=== PATIENT | female | born 1980 | race Caucasian/White ===

== ENCOUNTER 2017-06-25 07:49 | Emergency (ER) | payer BC, OTHER ==
--- NOTE | 2017-06-25 07:53 | PDOC ---
History of Present Illness - General Chief Complaint: Pain Stated Complaint: "I HAVE STOMACH FLU" Time Seen by Provider: 06/25/17 07:53 History Source: Patient Exam Limitations: No Limitations - History of Present Illness Initial Comments: 06/25/17 08:05 Pt presents to the ED complaining of a three day history of generalized malaise , low grade fever, and nausea. States that she felt ill two days ago and had low grade fever. Patient felt in her usual state of health yesterday, but this morning awoke with her "stomach feeling sour". Denies vomiting or diarrhea. Denies sick contacts. Denies abdominal pain. Past History - Past Medical History Allergies/Adverse Reactions: Allergies Allergy/AdvReac Type Severity Reaction Status Date / Time penicillin G Allergy Mild Verified 06/25/17 07:51 Home Medications: Ambulatory Orders Ondansetron [Zofran Odt -] 4 mg GT TID PRN #8 tab.rapdis 06/25/17 COPD: No Other medical history: pt denies - Immunization History Immunization Up to Date: Yes - Suicide/Smoking/Psychosocial Hx Smoking History: Never smoked Number of Cigarettes Smoked Daily: 0 Hx Alcohol Use: No Drug/Substance Use Hx: No Substance Use Type: None ED Treatment Course - LABORATORY CBC & Chemistry Diagram: 06/25/17 08:25 06/25/17 08:25 Medical Decision Making - Medical Decision Making 06/25/17 10:29 pt presents to the ED complaining of nausea without vomiting or abdominal pain. Labs checked to rule out electrolyte disturbance or biliary disease and are negative. Patient is tolerating PO in the ED but complains of burning pain when drinking water. Will treat with pepcid and reassess. *DC/Admit/Observation/Transfer Diagnosis at time of Disposition: Nausea - Discharge Dispostion Disposition: HOME Condition at time of disposition: Good Admit: No - Prescriptions Prescriptions: Ondansetron [Zofran Odt -] 4 mg GT TID PRN #8 tab.rapdis PRN Reason: Nausea - Referrals - Patient Instructions Printed Discharge Instructions: DI for Nausea -- Adult Additional Instructions: return to the ED for severe pain, severe nausea and vomiting, unable to keep anything down, pain with fever, new or worsening symptoms. - Post Discharge Activity
[2017-06-25 07:56] VITALS: BMI 17.6
[2017-06-25] MEDS ORDERED: ONDANSETRON 4 MG/2 ML VIAL IVPUSH ONE (08:05)
[2017-06-25] MEDS ORDERED: SODIUM CHLORIDE 0.9% 1000 ML INFUS.BAG IV ONE ×2 (08:05→10:43)
[2017-06-25] MEDS ORDERED: ONDANSETRON 4 MG/2 ML VIAL ONE (08:24)
[2017-06-25 08:48] LABS: BASOPHIL 0.3 % (0-2.0); EOSINOPHIL 0.5 % (0-4.5); MCH 30.7 pg (25.7-33.7); MCHC 34.8 g/dl (32.0-36.0); MEAN CELL VOLUME 88.3 fl (80-96); MEAN PLT VOLUME 7.4 fl (7.5-11.1); NEUTROPHILS 80.6 % (42.8-82.8); PLATELET COUNT 172 K/MM3 (134-434); RDW 11.5 % (11.6-15.6); WHITE BLOOD COUNT 6.2 K/mm3 (4.0-10.8)
[2017-06-25 09:54] LABS: ALBUMIN 3.8 g/dl (3.5-5.0); ALK PHOS 72 U/L (32-92); ANION GAP 7 (8-16); BILIRUBIN,TOTAL 0.7 mg/dl (0.2-1.0); CALCIUM 8.4 mg/dl (8.4-10.2); CO2 23 mmol/L (22-28); CREATININE 0.5 mg/dl (0.6-1.3); GLUCOSE,RANDOM 89 mg/dl (74-106); SGOT/AST 22 U/L (10-42); SGPT/ALT 21 U/L (10-40); TOT PROT 6.4 g/dl (6.4-8.3)
[2017-06-25] MEDS ORDERED: FAMOTIDINE IV 20 MG/12 ML VIAL IVPUSH ONE (10:14)
[2017-06-25] MEDS ORDERED: FAMOTIDINE 20 MG/50 ML IVPB 20 MG/50 ML MG IVPB ONE (10:28)
[2017-06-25 11:42] VITALS: BP 99/65; PULSE 94; TEMP 99.5
== END 2017-06-25 12:11 | disposition home or self-care (01) ==
LOC: FER 07:49
PROC: 3E0337Z Introduction of Electrolytic and Water Balance Substance into Peripheral Vein, Percutaneous Approach (ICD-10-PCS; principal; 2017-06-25)
PROC: 3E033GC Introduction of Other Therapeutic Substance into Peripheral Vein, Percutaneous Approach (ICD-10-PCS; 2017-06-25)
DX: R11.0 Nausea (principal)
CPT/HCPCS: 36415; 80053; 84703; 85025; 99282-25